=== PATIENT | female | born 2000 | race Two or more races ===

== ENCOUNTER 2019-02-25 22:09 | Emergency (ER) | payer MEDICAID ==
--- NOTE | 2019-02-25 22:24 | EDM.PDOC ---
ED HPI GENERAL MEDICAL PROBLEM - General Stated Complaint: RIGHT SIDE PAIN Time Seen by Provider: 02/25/19 22:09 Source of Information: Reports: Patient, Family History Limitations: Reports: No Limitations - History of Present Illness INITIAL COMMENTS - FREE TEXT/NARRATIVE: 18 y.o.w.f came to the ed with her family due to pain at her right flank and RUQ of her abdomen. Pt has frequent urinations as well, denies / No F/ C. no SOP, no CP or any other acute med issues. Pulse ox 100% on RA BP 102/76 RR 18 Pulse 96 RR 18 Temp 98.3 Onset Date: 02/25/19 Onset Time: 08:00 Duration: Hour(s): Location: Reports: Pelvis Quality: Reports: Burning Severity: Moderate Improves with: Reports: None Worsens with: Reports: None Context: Reports: Other Associated Symptoms: Reports: No Other Symptoms RUQ Pain Score (Numeric/FACES): 8 - Related Data Allergies Allergy/AdvReac Type Severity Reaction Status Date / Time No Known Allergies Allergy Verified 02/25/19 22:35 Home Meds: Home Meds Ciprofloxacin HCl [Cipro] 500 mg PO BID #20 tablet 02/25/19 [Rx] Phenazopyridine HCl [Pyridium] 100 mg PO Q8HR #9 tablet 02/25/19 [Rx] ED ROS GENERAL - Review of Systems Review Of Systems: See Below Constitutional: Reports: No Symptoms HEENT: Reports: No Symptoms Respiratory: Reports: No Symptoms Cardiovascular: Reports: No Symptoms Endocrine: Reports: No Symptoms GI/Abdominal: Reports: No Symptoms : Reports: Dysuria, Flank Pain, Frequency Musculoskeletal: Reports: No Symptoms Skin: Reports: No Symptoms Neurological: Reports: No Symptoms Psychiatric: Reports: No Symptoms Hematologic/Lymphatic: Reports: No Symptoms Immunologic: Reports: No Symptoms ED EXAM, GI/ABD - Physical Exam Exam: See Below Exam Limited By: No Limitations General Appearance: Alert, WD/WN, Mild Distress Eyes: Bilateral: Normal Appearance Ears: Normal External Exam, Normal Canal Nose: Normal Inspection Throat/Mouth: Normal Inspection Head: Atraumatic, Other Neck: Normal Inspection, Supple, Non-Tender Respiratory/Chest: No Respiratory Distress, Lungs Clear, Normal Breath Sounds Cardiovascular: Normal Peripheral Pulses, Regular Rate, Rhythm, No Edema, No Gallop GI/Abdominal Exam: Normal Bowel Sounds, Soft, Non-Tender, No Organomegaly (Female) Exam: Deferred Rectal (Female) Exam: Deferred Back Exam: Normal Inspection, Full Range of Motion Extremities: Normal Inspection, Normal Range of Motion, Non-Tender Neurological: Alert, Oriented, CN II-XII Intact, Normal Cognition, Normal Gait Psychiatric: Normal Affect, Normal Mood Skin Exam: Warm, Dry, Intact, Normal Color, No Rash Lymphatic: No Adenopathy Course - Vital Signs Text/Narrative:: 18 y.o.w.f came to the ed with her family due to pain at her right flank and RUQ of her abdomen. Pt has frequent urinations as well, denies / No F/ C. no SOP, no CP or any other acute med issues. Pulse ox 100% on RA BP 102/76 RR 18 Pulse 96 RR 18 Temp 98.3 PE: WNWD EW F w RUQ abd. pain with frequent urinations Labs: CBC nl except HGB 11.3 MCV 76.5 LFTs pos for Alb 3.3 DB 0.08 alc phos 119 UA: Pos for UTI with hematuria HCG neg Impression: 1) RUQ abd pain, cause not determined, 2)UTI Tx: Pyridium, Levaquin Reexam: Improved, Plan: D/C with instructions addendum 02/26/2019: Have attempted to F/U on the pt's well being. Pt's Phone does not work Last Recorded V/S: Last Vital Signs Temp 36.8 C 02/25/19 22:09 Pulse 96 02/25/19 22:09 Resp 17 02/25/19 22:09 BP 102/76 02/25/19 22:09 Pulse Ox 100 02/25/19 22:09 - Orders/Labs/Meds Labs: Laboratory Tests 02/25/19 02/25/19 02/25/19 Range/Units 22:30 22:30 22:35 WBC 9.6 (4.5-12.0) X10-3/uL RBC 4.34 (3.23-5.20) x10(6)uL Hgb 11.3 L (11.5-15.5) g/dL Hct 32.7 (30.0-51.3) % MCV 75.2 L (80-96) fL MCH 25.9 L (27.7-33.6) pg MCHC 34.5 (32.2-35.4) g/dL RDW 18.2 H (11.5-15.5) % Plt Count 306 (125-369) X10(3)uL MPV 9.0 (7.4-10.4) fL Neut % (Auto) 58.3 (46-82) % Lymph % (Auto) 32.3 (13-37) % [place] % (Auto) 5.5 (4-12) % Eos % (Auto) 3 (1.0-5.0) % Baso % (Auto) 1 (0-2) % Neut # (Auto) 5.6 (1.6-8.3) # Lymph # (Auto) 3.1 (0.6-5.0) # [place]ys # (Auto) 0.5 (0.0-1.3) # Eos # (Auto) 0.3 (0.0-0.8) # Baso # (Auto) 0.1 (0.0-0.2) # Sodium 142 (135-145) mmol/L Potassium 3.7 (3.5-5.3) mmol/L Chloride 106 (100-110) mmol/L Carbon Dioxide 28 (21-32) mmol/L BUN 15 (7-18) mg/dL Creatinine 0.7 (0.55-1.02) mg/dL Est Cr Clr Drug Dosing TNP Estimated GFR (MDRD) > 60 (>60) BUN/Creatinine Ratio 21.4 H (9-20) Glucose 82 (80-116) mg/dL Calcium 8.8 (8.6-10.2) mg/dL Total Bilirubin 0.3 (0.1-1.3) mg/dL Direct Bilirubin 0.08 L (0.10-0.20) mg/dL AST 22 (5-25) IU/L ALT 30 (12-36) U/L Alkaline Phosphatase 119 H (56-112) IU/L Total Protein 7.3 (6.0-8.0) g/dL Albumin 3.3 L (3.5-5.2) g/dL Amylase 34 (25-115) U/L Urine Color Yellow (YELLOW) Urine Appearance Cloudy (CLEAR) Urine pH 8.0 H (5.0-6.5) Ur Specific [place] 1.010 (1.010-1.025) Urine Protein Trace (NEGATIVE) mg/dL Urine Glucose (UA) Normal (NORMAL) mg/dL Urine Ketones Negative (NEGATIVE) mg/dL Urine Occult Blood Moderate H (NEGATIVE) Urine Nitrite Negative (NEGATIVE) Urine Bilirubin Negative (NEGATIVE) Urine Urobilinogen Normal (NEGATIVE) mg/dL Ur Leukocyte Esterase Large H (NEGATIVE) Urine RBC 5-10 H (0-5) Urine WBC >100 H (0-5) Ur Squamous Epith Cells Few H (NS,R,O) Urine Bacteria Few H (NS) Urine HCG, Qual (NEGATIVE) 02/25/19 Range/Units 22:35 WBC (4.5-12.0) X10-3/uL RBC (3.23-5.20) x10(6)uL Hgb (11.5-15.5) g/dL Hct (30.0-51.3) % MCV (80-96) fL MCH (27.7-33.6) pg MCHC (32.2-35.4) g/dL RDW (11.5-15.5) % Plt Count (125-369) X10(3)uL MPV (7.4-10.4) fL Neut % (Auto) (46-82) % Lymph % (Auto) (13-37) % [place] % (Auto) (4-12) % Eos % (Auto) (1.0-5.0) % Baso % (Auto) (0-2) % Neut # (Auto) (1.6-8.3) # Lymph # (Auto) (0.6-5.0) # [place] # (Auto) (0.0-1.3) # Eos # (Auto) (0.0-0.8) # Baso # (Auto) (0.0-0.2) # Sodium (135-145) mmol/L Potassium (3.5-5.3) mmol/L Chloride (100-110) mmol/L Carbon Dioxide (21-32) mmol/L BUN (7-18) mg/dL Creatinine (0.55-1.02) mg/dL Est Cr Clr Drug Dosing Estimated GFR (MDRD) (>60) BUN/Creatinine Ratio (9-20) Glucose (80-116) mg/dL Calcium (8.6-10.2) mg/dL Total Bilirubin (0.1-1.3) mg/dL Direct Bilirubin (0.10-0.20) mg/dL AST (5-25) IU/L ALT (12-36) U/L Alkaline Phosphatase (56-112) IU/L Total Protein (6.0-8.0) g/dL Albumin (3.5-5.2) g/dL Amylase (25-115) U/L Urine Color (YELLOW) Urine Appearance (CLEAR) Urine pH (5.0-6.5) Ur Specific [place] (1.010-1.025) Urine Protein (NEGATIVE) mg/dL Urine Glucose (UA) (NORMAL) mg/dL Urine Ketones (NEGATIVE) mg/dL Urine Occult Blood (NEGATIVE) Urine Nitrite (NEGATIVE) Urine Bilirubin (NEGATIVE) Urine Urobilinogen (NEGATIVE) mg/dL Ur Leukocyte Esterase (NEGATIVE) Urine RBC (0-5) Urine WBC (0-5) Ur Squamous Epith Cells (NS,R,O) Urine Bacteria (NS) Urine HCG, Qual Negative (NEGATIVE) Meds: Medications Discontinued Medications Generic Name Dose Route Start Last Admin Trade Name Freq PRN Reason Stop Dose Admin Levofloxacin 500 mg 02/25/19 22:56 02/25/19 23:46 Levaquin PO 02/25/19 22:57 500 mg ONETIME ONE Administration Phenazopyridine HCl 95 mg 02/26/19 09:00 Urinary Pain Relief PO TIDPC REGINA Phenazopyridine HCl 95 mg 02/25/19 23:39 02/25/19 23:46 Urinary Pain Relief PO 02/25/19 23:40 95 mg ONETIME STA Administration Departure - Departure Time of Disposition: 23:25 Disposition: Home, Self-Care 01 Condition: Good Clinical Impression: UTI (urinary tract infection) Qualifiers: Urinary tract infection type: acute cystitis Hematuria presence: with hematuria Qualified Code(s): N30.01 - Acute cystitis with hematuria - Discharge Information Prescriptions: Phenazopyridine HCl [Pyridium] 100 mg PO Q8HR #9 tablet Ciprofloxacin HCl [Cipro] 500 mg PO BID #20 tablet Instructions: Phenazopyridine tablets, Urinary Tract Infection, Adult, Easy-to- Read, Levofloxacin tablets, Ciprofloxacin tablets Referrals: Ramon Martinez MD [Primary Care Provider] - Forms: ED Department Discharge Additional Instructions: Please increase water intake, please take the meds as recommended, please f/u, come back if your symptoms get worse acutely
[2019-02-25] MEDS ORDERED: Levofloxacin 500 MG Tab PO ONE (22:56)
[2019-02-25] MEDS ORDERED: Phenazopyridine 95 MG Tab PO STA (23:39)
[2019-02-26] MEDS ORDERED: Phenazopyridine 95 MG Tab PO SCH (09:00)
== END 2019-02-25 23:48 | disposition home or self-care (01) ==
LOC: FB.ED 22:09
DX: N30.01 Acute cystitis with hematuria (principal)
CPT/HCPCS: 36415; 80048; 80076; 81001; 81025; 82150; 85025; 99284; A9270

== ENCOUNTER 2022-02-01 09:30 | Emergency (ER) | payer MEDICAID ==
[2022-02-01] MEDS ORDERED: cefTRIAXone 1 GM Vial IM ONE (09:54)
== END 2022-02-01 11:35 | disposition home or self-care (01) ==
LOC: FB.ED 09:30
DX: L03.115 Cellulitis of right lower limb (principal)
CPT/HCPCS: 36415; 73610-RT; 85025; 96372; 99281; 99283-25; J0696

== ENCOUNTER 2022-04-03 00:07 | Emergency (ER) | payer MEDICAID ==
[2022-04-03] MEDS ORDERED: Diphtheria,Pertussis(Acell),Tetanus Vaccine 0.5 ML Syringe IM ONE (00:20)
== END 2022-04-03 00:30 | disposition home or self-care (01) ==
LOC: FB.ED 00:07
DX: S61.312A Laceration without foreign body of right middle finger with damage to nail, initial encounter (principal); Z23 Encounter for immunization; W26.8XXA Contact with other sharp object(s), not elsewhere classified, initial encounter
CPT/HCPCS: 90471; 90715; 99282-25

== ENCOUNTER 2024-08-31 01:09 | Emergency (ER) | payer MEDICAID | END 2024-08-31 02:28 | disposition home or self-care (01) | LOC: FB.ED 01:09 | DX: S61.210A Laceration without foreign body of right index finger without damage to nail, initial encounter (principal); F17.210 Nicotine dependence, cigarettes, uncomplicated; W26.8XXA Contact with other sharp object(s), not elsewhere classified, initial encounter | CPT/HCPCS: 12001; 99282; 99283 ==